=== PATIENT | female | born 1995 | race American Indian/Alaskan Native ===

== ENCOUNTER 2018-05-19 13:49 | Emergency (ER) | payer SELFPAY ==
--- NOTE | 2018-05-19 14:53 | Emergency Department Report ---
Blank Doc - Documentation Documentation: 23 Y. FEMALE PRESENT with left vaginal lip swelling after intercourse with part ner denies bleeding, vag d/c/dysuria LMP 05/16/18 PLAN: UA,UPT fast track eval
[2018-05-19 15:29] LABS: Bacteria,Urine 2+ /HPF (Negative); Bilirubin,Urine NEG (Negative); Blood,Urine MOD (Negative); Color,Urine Amber (Yellow); Hyaline Casts,Urine 2 /LPF; Mucus,Urine 3+ /HPF
[2018-05-19 15:55] LABS: HCG Qualitative,Urine Negative (Negative)
[2018-05-19 18:26] VITALS: BP 110/82
[2018-05-19] MEDS ORDERED: ROCEPHIN IM ONE (19:52)
[2018-05-19] MEDS ORDERED: ZITHROMAX PO ONE (19:52)
[2018-05-19] MEDS ORDERED: XYLOCAINE 1% MPF 5 mL INFILTRATI ONE (19:52)
--- NOTE | 2018-05-19 20:27 | Emergency Department Report ---
ED Female HPI - General Chief complaint: Urogenital-Female Stated complaint: VAGINAL PAIN Time Seen by Provider: 05/19/18 15:35 Source: patient Mode of arrival: Ambulatory Limitations: No Limitations - History of Present Illness Initial comments: Patient 23-year-old female who presents with vaginal pain and irritation times 1 week status and discharge white thick malodorous dysuria dyspareunia no nausea vomiting no fever chills no back pain abdominal pain patient believes possible STI there are no relieving or exacerbating factors Complaint: dysuria, pelvic pain, possible STD Onset/Timin -: week(s) Location: labia Radiation: suprapubic Severity: moderate Severity scale (0 -10): 4 Quality: burning, aching Consistency: constant Improves with: none Worsens with: none Are you Now?: No Last Menstrual Period: 05/05/18 EDC: 02/09/19 Associated Symptoms: vaginal discharge - Related Data Sexually active: Yes : 0 Para: 0 A: 0 Previous Rx's Medication Instructions Recorded Last Taken Type Naproxen [Naprosyn TAB] 500 mg PO BID #30 tablet 04/24/14 Unknown Rx Sulfamethoxazole/Trimethoprim 1 each PO Q12HR #6 tablet 08/12/14 Unknown Rx [Bactrim DS TAB] Doxycycline [Vibramycin CAP] 100 mg PO BID #20 capsule 05/19/18 Unknown Rx metroNIDAZOLE [Flagyl] 500 mg PO BID 10 Days #20 tab 05/19/18 Unknown Rx Allergies Allergy/AdvReac Type Severity Reaction Status Date / Time No Known Allergies Allergy Verified 05/19/18 14:48 ED Review of Systems ROS: Stated complaint: VAGINAL PAIN Other details as noted in HPI Constitutional: denies: chills, fever Eyes: denies: eye pain, eye discharge, vision change ENT: denies: ear pain, throat pain Respiratory: denies: cough, shortness of breath, wheezing Cardiovascular: denies: chest pain, palpitations Endocrine: no symptoms reported Gastrointestinal: denies: abdominal pain, nausea, diarrhea Genitourinary: urgency, dysuria, frequency, discharge, dyspareunia Musculoskeletal: denies: back pain, joint swelling, arthralgia Skin: denies: rash, lesions Neurological: denies: headache, weakness, paresthesias Psychiatric: denies: anxiety, depression Hematological/Lymphatic: denies: easy bleeding, easy bruising ED Past Medical Hx - Past Medical History Previous Medical History?: Yes Hx Hypertension: No Hx Diabetes: No Hx Deep Vein Thrombosis: No Hx Renal Disease: No Hx Sickle Cell Disease: No Hx Seizures: No Hx Psychiatric Treatment: Yes (POSSIBLE BIPOLAR) Hx Asthma: No Hx HIV: No Additional medical history: skin disorder - Surgical History Past Surgical History?: No - Social History Smoking Status: Current Every Day Smoker Substance Use Type: Alcohol, Marijuana - Medications Home Medications: Home Medications Medication Instructions Recorded Confirmed Last Taken Type Naproxen [Naprosyn TAB] 500 mg PO BID #30 tablet 04/24/14 Unknown Rx Sulfamethoxazole/Trimethoprim 1 each PO Q12HR #6 tablet 08/12/14 Unknown Rx [Bactrim DS TAB] Doxycycline [Vibramycin CAP] 100 mg PO BID #20 capsule 05/19/18 Unknown Rx metroNIDAZOLE [Flagyl] 500 mg PO BID 10 Days #20 tab 05/19/18 Unknown Rx ED Physical Exam - General Limitations: No Limitations General appearance: alert, in no apparent distress - Head Head exam: Present: atraumatic, normocephalic - Eye Eye exam: Present: normal appearance - ENT ENT exam: Present: mucous membranes moist - Neck Neck exam: Present: normal inspection, full ROM. Absent: lymphadenopathy, thyromegaly - Respiratory Respiratory exam: Present: normal lung sounds bilaterally. Absent: respiratory distress, wheezes, stridor, chest wall tenderness - Cardiovascular Cardiovascular Exam: Present: regular rate, normal rhythm, normal heart sounds. Absent: systolic murmur, diastolic murmur, rubs, gallop - GI/Abdominal GI/Abdominal exam: Present: soft, normal bowel sounds. Absent: distended, tenderness, guarding, rebound, rigid, bruit, hernia - Rectal Rectal exam: Present: deferred - External exam: Present: normal external exam, erythema. Absent: swelling, lesions, lacerations, ecchymosis, bleeding Speculum exam: Present: erythema, vaginal discharge (white thick malodorous ). Absent: cervical discharge, vaginal bleeding, foreign body, tissue, laceration Bi-manual exam: Present: cervical motion tendernes - Extremities Exam Extremities exam: Present: normal inspection, normal capillary refill. Absent: full ROM, tenderness, pedal edema, joint swelling, calf tenderness - Back Exam Back exam: Present: normal inspection, full ROM. Absent: tenderness, CVA tenderness (R), CVA tenderness (L), muscle spasm - Neurological Exam Neurological exam: Present: alert, oriented X3, CN II-XII intact, normal gait, reflexes normal - Psychiatric Psychiatric exam: Present: normal affect, normal mood - Skin Skin exam: Present: warm, dry, intact, normal color. Absent: rash ED Course Vital Signs 05/19/18 05/19/18 14:48 18:14 Temperature 98.2 F 98.2 F Pulse Rate 114 H 125 H Respiratory 16 15 Rate Blood Pressure 131/81 110/82 O2 Sat by Pulse 98 99 Oximetry ED Medical Decision Making - Lab Data Labs 05/19/18 05/19/18 15:03 15:03 Urine Color Anh Urine Turbidity Slightly-cloudy Urine pH 5.0 Ur Specific [place] 1.030 Urine Protein 30 mg/dl Urine Glucose (UA) Neg Urine Ketones Tr Urine Blood Mod Urine Nitrite Neg Urine Bilirubin Neg Urine Urobilinogen 4.0 Ur Leukocyte Esterase Neg Urine WBC (Auto) 5.0 Urine RBC (Auto) 4.0 U Epithel Cells (Auto) 17.0 H Urine Bacteria (Auto) 2+ Hyaline Casts 2 Urine Mucus 3+ Urine HCG, Qual Negative - Medical Decision Making this is a UTI with vaginitis, std exposure tx'd for same, will add doxycycline for CMT there is no fever no chills no n/v pt will follow [facility] for HIV and HSV screening. Critical care attestation.: If time is entered above; I have spent that time in minutes in the direct care of this critically ill patient, excluding procedure time. ED Disposition Clinical Impression: STD exposure UTI (urinary tract infection) Qualifiers: Urinary tract infection type: acute cystitis Hematuria presence: without hematuria Qualified Code(s): N30.00 - Acute cystitis without hematuria Vaginitis Qualifiers: Chronicity: acute Qualified Code(s): N76.0 - Acute vaginitis Disposition: TO HOME OR SELFCARE Is pt being admited?: No Does the pt Need Aspirin: No Condition: Stable Instructions: Vaginitis (ED), Urinary Tract Infection in Women (ED), Sexually Transmitted Diseases (ED) Additional Instructions: [facility] Prescriptions: Doxycycline [Vibramycin CAP] 100 mg PO BID #20 capsule metroNIDAZOLE [Flagyl] 500 mg PO BID 10 Days #20 tab Referrals: ELSIE VILLAFANA MD [Primary Care Provider] - 3-5 Days Forms: Work/School Release Form(ED) Time of Disposition: 20:31
== END 2018-05-19 20:31 | disposition home or self-care (01) ==
LOC: ED 13:49
DX: N39.0 Urinary tract infection, site not specified (principal); N76.0 Acute vaginitis; Z20.2 Contact with and (suspected) exposure to infections with a predominantly sexual mode of transmission; F17.200 Nicotine dependence, unspecified, uncomplicated
CPT/HCPCS: 81001; 81025; 87210; 87591; 96372; 99284; J0696

== ENCOUNTER 2018-09-09 13:25 | Emergency (ER) | payer OTHER ==
[2018-09-09 13:45] VITALS: BP 140/83
--- NOTE | 2018-09-09 13:51 | Emergency Department Report ---
Chief Complaint: Urogenital-Female Stated Complaint: VACCINE Time Seen by Provider: 09/09/18 13:43 - HPI History of Present Illness: This is a 23-year-old female nontoxic, well in appearance with no signs of distress presents to the ED for STD check. Patient stated that his partner called and said has STD. Patient stated she is asymptotic. Denies any vaginal discharge, testicular pain, or swelling. Patient denies any urinary symptoms. Patient denies any fever, chills, headache, nausea, vomiting, chest pain or shortness of breathe. Denies any other symptoms or complaints. Denies any allergies or PMH. - Exam Vital Signs: Vital Signs 09/09/18 13:43 Temperature 98.7 F Pulse Rate 115 H Respiratory 16 Rate Blood Pressure 140/83 O2 Sat by Pulse 99 Oximetry Physical Exam: Denies any abdominal pain. Deneis any pelvic pain. Denies any urinary symptoms. MSE screening note: Focused history and physical exam performed. Due to findings the following was ordered: ED Medical Decision Making - Medical Decision Making This is a 23-year-old female that presents with nonmedical emergency complaint. Patient is just requested for a STD test. Patient denies any symptoms. Patient was approached by registration for insurance or copay but patient refused. I gave patient many different referrals to follow-up with STD concerns. Patient was instructed to Follow-up with a primary care doctor in 3-5 days or if symptoms worsen and continue return to emergency room as soon as possible. At time of discharge, the patient does not seem toxic or ill in appearance. No acute signs of distress noted. Patient agrees to discharge treatment plan of care. No further questions noted by the patient. ED Disposition for MSE Clinical Impression: Possible exposure to STD Disposition: Z-07 MED SCREENING EXAM-LEFT Is pt being admited?: No Does the pt Need Aspirin: No Condition: Stable Instructions: Safe Sex (ED) Additional Instructions: Follow-up with a primary care doctor, [facility], or [facility] in 3-5 days or if symptoms worsen and continue return to the emergenc y department as soon as possible. Referrals: PRIMARY MD JIMBO [Referring] - 3-5 Days SHIRAZ PUGA MD [Staff Physician] - 3-5 Days [facility] [Outside] - 3-5 Days [facility] [Outside] - 3-5 Days
== END 2018-09-09 14:00 | disposition left against medical advice (07) ==
LOC: ED 13:25
DX: Z20.2 Contact with and (suspected) exposure to infections with a predominantly sexual mode of transmission (principal)
CPT/HCPCS: 99281

== ENCOUNTER 2019-07-28 15:32 | Emergency (ER) | payer SELFPAY ==
[2019-07-28 15:54] VITALS: BP 127/70
--- NOTE | 2019-07-28 16:00 | Emergency Department Report ---
Chief Complaint: Medical Clearance Stated Complaint: FEELING ILL Time Seen by Provider: 07/28/19 15:56 - HPI History of Present Illness: This is a 24-year-old female presents to ED stating that she is 2 weeks late of her menstrual cycle and thinks she is . Patient states that her partner states he had a vasectomy so she cannot be . Patient states that her periods are usually regular and comes every month. Patient states that she is here to get a test and see if she is . Patient states she took a home test that was positive. She denies vaginal bleeding, pelvic pain, abdominal pain, nausea vomiting or any other symptoms. - ROS Review of Systems: As noted in HPI - Exam Vital Signs: Vital Signs 07/28/19 15:50 Temperature 98.8 F Pulse Rate 86 Respiratory 18 Rate Blood Pressure 127/70 O2 Sat by Pulse 100 Oximetry Physical Exam: GENERAL: Alert and oriented x3, no apparent distress, Normal Gait, atraumatic. . SKIN: Warm and dry, No lesions, No ulceration or induration present. MSE screening note: Focused history and physical exam performed. Due to findings the following was ordered: ED Medical Decision Making - Medical Decision Making Discussed with patient on this is not a medical emergency. Referrals given to patient for the health department and other clinics where she can go get a test done. Vital signs are normal patient is in no acute distress. Patient understands instructions. ED Disposition for MSE Clinical Impression: Well adult health check Disposition: Z- MED SCREENING EXAM-LEFT Is pt being admited?: No Does the pt Need Aspirin: No Condition: Stable Instructions: (ED) Additional Instructions: Make sure to follow [facility] with [facility] or [facility] or the health department for test As discussed. If you have any worsening symptoms or develop new symptoms please return to ED immediately. Referrals: [facility] [Outside] - 3-5 Days [facility] [Outside] - 3-5 Days [facility] [Outside] - 3-5 Days [facility] [Outside] - 3-5 Days Forms: Work/School Release Form(ED) Time of Disposition: 15:58
== END 2019-07-28 17:13 | disposition left against medical advice (07) ==
LOC: ED 15:32
DX: Z00.00 Encounter for general adult medical examination without abnormal findings (principal)
CPT/HCPCS: 99281

== ENCOUNTER 2019-10-22 16:00 | Emergency (ER) | payer SELFPAY ==
[2019-10-22 19:15] VITALS: BP 137/57
--- NOTE | 2019-10-22 19:21 | Emergency Department Report ---
ED ENT HPI - General Chief complaint: Earache Stated complaint: RT EAR DRUM/PAIN Time Seen by Provider: 10/22/19 19:13 Source: patient Mode of arrival: Ambulatory Limitations: No Limitations - History of Present Illness Initial comments: Patient is a 24-year-old female presents emergency room with complaints of right-sided ear pain that began several days ago. She states a few days ago she used a Q-tip and was scratching inside the ear. She states that she has had ringing in the ear since then. She denies any drainage. She states that her bilateral canals always bother her. She denies any fever, vomiting, chills, abdominal pain, vaginal bleeding. She denies any past medical history. She denies allergies to medications. She states that she is currently 4 months . - Related Data Previous Rx's Medication Instructions Recorded Last Taken Type Naproxen [Naprosyn TAB] 500 mg PO BID #30 tablet 04/24/14 Unknown Rx Sulfamethoxazole/Trimethoprim 1 each PO Q12HR #6 tablet 08/12/14 Unknown Rx [Bactrim DS TAB] DOXYCYCLINE Hyclate [Vibramycin 100 mg PO BID #20 capsule 05/19/18 Unknown Rx CAP] metroNIDAZOLE [Flagyl] 500 mg PO BID 10 Days #20 tab 05/19/18 Unknown Rx Amoxicillin [Amoxicillin TAB] 875 mg PO BID 10 Days #20 tablet 04/12/19 Unknown Rx Amoxicillin/Potassium Clav 1 each PO BID 10 Days #20 tablet 10/22/19 Unknown Rx [Augmentin 875-125 Tablet] Neomycin/Polymyxin B/Hydrocort 4 drops AU QID 10 Days #1 solution 10/22/19 Unknown Rx [Uzwbcbyz-Maxhvsuzt-Dd Ear Soln] Allergies Allergy/AdvReac Type Severity Reaction Status Date / Time No Known Allergies Allergy Verified 05/19/18 14:48 ED Dental HPI - General Chief complaint: Earache Stated complaint: RT EAR DRUM/PAIN Time Seen by Provider: 10/22/19 19:13 Source: patient Mode of arrival: Ambulatory Limitations: No Limitations - Related Data Previous Rx's Medication Instructions Recorded Last Taken Type Naproxen [Naprosyn TAB] 500 mg PO BID #30 tablet 04/24/14 Unknown Rx Sulfamethoxazole/Trimethoprim 1 each PO Q12HR #6 tablet 08/12/14 Unknown Rx [Bactrim DS TAB] DOXYCYCLINE Hyclate [Vibramycin 100 mg PO BID #20 capsule 05/19/18 Unknown Rx CAP] metroNIDAZOLE [Flagyl] 500 mg PO BID 10 Days #20 tab 05/19/18 Unknown Rx Amoxicillin [Amoxicillin TAB] 875 mg PO BID 10 Days #20 tablet 04/12/19 Unknown Rx Amoxicillin/Potassium Clav 1 each PO BID 10 Days #20 tablet 10/22/19 Unknown Rx [Augmentin 875-125 Tablet] Neomycin/Polymyxin B/Hydrocort 4 drops AU QID 10 Days #1 solution 10/22/19 Unknown Rx [Zogawkkw-Iqsdtnwff-Pm Ear Soln] Allergies Allergy/AdvReac Type Severity Reaction Status Date / Time No Known Allergies Allergy Verified 05/19/18 14:48 ED Review of Systems ROS: Stated complaint: RT EAR DRUM/PAIN Other details as noted in HPI Comment: All other systems reviewed and negative ED Past Medical Hx - Past Medical History Previous Medical History?: No Hx Hypertension: No Hx Diabetes: No Hx Deep Vein Thrombosis: No Hx Renal Disease: No Hx Sickle Cell Disease: No Hx Seizures: No Hx Psychiatric Treatment: Yes (POSSIBLE BIPOLAR) Hx Asthma: No Hx HIV: No Additional medical history: skin disorder - Surgical History Past Surgical History?: No - Social History Smoking Status: Current Every Day Smoker Substance Use Type: None - Medications Home Medications: Home Medications Medication Instructions Recorded Confirmed Last Taken Type Naproxen [Naprosyn TAB] 500 mg PO BID #30 tablet 04/24/14 Unknown Rx Sulfamethoxazole/Trimethoprim 1 each PO Q12HR #6 tablet 08/12/14 Unknown Rx [Bactrim DS TAB] DOXYCYCLINE Hyclate [Vibramycin 100 mg PO BID #20 capsule 05/19/18 Unknown Rx CAP] metroNIDAZOLE [Flagyl] 500 mg PO BID 10 Days #20 tab 05/19/18 Unknown Rx Amoxicillin [Amoxicillin TAB] 875 mg PO BID 10 Days #20 tablet 04/12/19 Unknown Rx Amoxicillin/Potassium Clav 1 each PO BID 10 Days #20 tablet 10/22/19 Unknown Rx [Augmentin 875-125 Tablet] Neomycin/Polymyxin B/Hydrocort 4 drops AU QID 10 Days #1 solution 10/22/19 Unknown Rx [Brwzrxgl-Jkkjxeact-Yb Ear Soln] ED Physical Exam - General Limitations: No Limitations General appearance: alert, in no apparent distress - Head Head exam: Present: atraumatic, normocephalic - Eye Eye exam: Present: normal appearance - ENT ENT exam: Present: normal orophraynx, mucous membranes moist, other (left tm is erythematous and scaling with purulent drainage present in the canal, left TM is normal, right canal is erythematous with scaling and purulent drainage in the canal, the right TM has purulence present behind the TM, unable to visualize an obvious TM perforation) - Neurological Exam Neurological exam: Present: alert, oriented X3 - Psychiatric Psychiatric exam: Present: normal affect, normal mood - Skin Skin exam: Present: warm, dry, intact ED Course Vital Signs 10/22/19 10/22/19 16:21 19:14 Temperature 98.3 F 98 F Pulse Rate 95 H 95 H Respiratory 16 18 Rate Blood Pressure 134/47 137/57 [Right] O2 Sat by Pulse 100 100 Oximetry ED Medical Decision Making - Medical Decision Making Patient is a 24-year-old female presents emergency room with complaints of right-sided ear pain that began several days ago. She states a few days ago she used a Q-tip and was scratching inside the ear. She states that she has had ringing in the ear since then. She denies any drainage. She states that her bilateral canals always bother her. She denies any fever, vomiting, chills, abdominal pain, vaginal bleeding. She denies any past medical history. She denies allergies to medications. She states that she is currently 4 months . Vitals are stable. On exam:left tm is erythematous and scaling with purulent drainage present in the canal, left TM is normal, right canal is erythematous with scaling and purulent drainage in the canal, the right TM has purulence present behind the TM, unable to visualize an obvious TM perforation. Examination consistent with right-sided otitis media and bilateral otitis externa. Patient given prescription for Augmentin and antibiotic eardrops. Advised patient Please use medication as prescribed. May take Tylenol as needed for discomfort. Please stop using Q-tips. Follow-up with a primary care doct or. Follow-up with a ear nose and throat doctor. Your ears need to be rechecked. Return to emergency room for any new or worsening symptoms. - Differential Diagnosis otitis media, otitis externa, cerumen impaction, perforation Critical care attestation.: If time is entered above; I have spent that time in minutes in the direct care of this critically ill patient, excluding procedure time. ED Disposition Clinical Impression: Otitis media Qualifiers: Otitis media type: suppurative Chronicity: acute Laterality: right Recurrence: not specified as recurrent Spontaneous tympanic membrane rupture: without spontaneous rupture Qualified Code(s): H66.001 - Acute suppurative otitis media without spontaneous rupture of ear drum, right ear Otitis externa Qualifiers: Otitis externa type: unspecified type Chronicity: acute Laterality: bilateral Qualified Code(s): H60.503 - Unspecified acute noninfective otitis externa, bilateral Disposition: DC- TO HOME OR SELFCARE Is pt being admited?: No Does the pt Need Aspirin: No Condition: Stable Instructions: Otitis Externa (ED), Otitis Media (ED) Additional Instructions: Please use medication as prescribed. May take Tylenol as needed for discomfort. Please stop using Q-tips. Follow-up with a primary care doctor. Follow-up with a ear nose and throat doctor. Your ears need to be rechecked. Return to emergency room for any new or worsening symptoms. Prescriptions: Amoxicillin/Potassium Clav [Augmentin 875-125 Tablet] 1 each PO BID 10 Days #20 tablet Neomycin/Polymyxin B/Hydrocort [Butochfo-Pukhceqqc-Gx Ear Soln] 4 drops AU QID 10 Days #1 solution Referrals: YFN MÉNDEZ MD [Staff Physician] - 2-3 Days [facility] [Provider Group] - 2-3 Days [facility] [Outside] - 2-3 Days MARVIN CRISOSTOMO MD [Staff Physician] - 2-3 Days Time of Disposition: 19:18 Print Language: LUXEMBOURGISH
== END 2019-10-22 19:28 | disposition home or self-care (01) ==
LOC: ED 16:00
DX: O26.892 Other specified pregnancy related conditions, second trimester (principal); H66.001 Acute suppurative otitis media without spontaneous rupture of ear drum, right ear; H60.503 Unspecified acute noninfective otitis externa, bilateral; O99.332 Smoking (tobacco) complicating pregnancy, second trimester; O99.342 Other mental disorders complicating pregnancy, second trimester; Z3A.16 16 weeks gestation of pregnancy
CPT/HCPCS: 99282

== ENCOUNTER 2020-02-09 16:28 | Outpatient (CLI) | payer MEDICAID ==
[2020-02-09] MEDS ORDERED: LACTATED RINGERS 1,000 ML IV SCH (17:00)
[2020-02-09 17:01] VITALS: BP 127/69
[2020-02-09 17:47] LABS: Bacteria,Urine 3+ /HPF (Negative); Bilirubin,Urine NEG (Negative); Blood,Urine NEG (Negative); Color,Urine Yellow (Yellow); Mucus,Urine 3+ /HPF; Protein,Urine <15 mg/dL mg/dL (Negative); RBC,Urine < 1.0 /HPF (0.0-6.0)
[2020-02-09 17:54] LABS: Amphetamine Screen,Urine PRESUMPTIVE NEGATIVE; Benzodiazepines Screen,Urine PRESUMPTIVE NEGATIVE; Cannabinoid Screen,Urine PRESUMPTIVE NEGATIVE; Cocaine Screen,Urine PRESUMPTIVE NEGATIVE; Methadone Screen,Urine PRESUMPTIVE NEGATIVE; Opiate Screen,Urine PRESUMPTIVE NEGATIVE
== END 2020-02-09 19:00 | disposition home or self-care (01) ==
LOC: APU 16:28 → TRG 16:28
PROVIDERS: ATTEND Obstetrics & Gynecology
DX: O46.8X3 Other antepartum hemorrhage, third trimester (principal); Z3A.34 34 weeks gestation of pregnancy
CPT/HCPCS: 59025; 80307; 81001

== ENCOUNTER 2020-03-17 00:11 | Outpatient (CLI) | payer MEDICAID ==
[2020-03-17 01:13] VITALS: BP 124/74
[2020-03-17 02:11] LABS: Bilirubin,Urine NEG (Negative); Blood,Urine NEG (Negative); Color,Urine Yellow (Yellow); Mucus,Urine FEW /HPF; Protein,Urine <15 mg/dL mg/dL (Negative); Urobilinogen,Urine < 2.0 mg/dL (<2.0)
[2020-03-17 02:19] LABS: Amphetamine Screen,Urine PRESUMPTIVE NEGATIVE; Benzodiazepines Screen,Urine PRESUMPTIVE NEGATIVE; Cannabinoid Screen,Urine PRESUMPTIVE NEGATIVE; Cocaine Screen,Urine PRESUMPTIVE NEGATIVE; Methadone Screen,Urine PRESUMPTIVE NEGATIVE; Opiate Screen,Urine PRESUMPTIVE NEGATIVE
== END 2020-03-17 02:50 | disposition home or self-care (01) ==
LOC: TRG 00:11 → APU 00:31 → TRG 02:50
PROVIDERS: ATTEND Obstetrics & Gynecology
DX: Z34.03 Encounter for supervision of normal first pregnancy, third trimester (principal); Z3A.40 40 weeks gestation of pregnancy
CPT/HCPCS: 59025; 80307; 81001

== ENCOUNTER 2020-03-22 20:09 | Inpatient (IN) | payer MEDICAID ==
[2020-03-22] MEDS ORDERED: MINERAL OIL 30 ML ORAL LIQD PO PRN (21:44)
[2020-03-22] MEDS ORDERED: fentaNYL 100 MCG/2 ML INJ IV PRN (21:44)
[2020-03-22] MEDS ORDERED: OXYTOCIN 10 UNIT/1 ML INJ IM PRN (21:44)
[2020-03-22] MEDS ORDERED: miSOPROStol 200 MCG TAB PR PRN (21:44)
[2020-03-22] MEDS ORDERED: CARBOPROST TROMETHAMINE 250 MCG/1 ML INJ IM PRN (21:44)
[2020-03-22] MEDS ORDERED: TERBUTALINE 1 MG/1 ML INJ SUB-Q PRN (21:44)
[2020-03-22] MEDS ORDERED: LIDOCAINE (2%) 20 MG/1 ML VIAL 20 ML MDV INFILTRATI ONE (21:44)
[2020-03-22] MEDS ORDERED: ONDANSETRON 4 MG/2 ML INJ IV PRN (21:44)
[2020-03-22] MEDS ORDERED: ePHEDrine SULFATE 50 MG/1 ML INJ IV PRN (21:44)
[2020-03-22] MEDS ORDERED: AMPICILLIN/NS 2 GM/100 ML 2 GM/100 ML BAG IV ONE (21:44)
[2020-03-22] MEDS ORDERED: METHYLERGONOVINE MALEATE 0.2 MG/ML VIAL IM PRN (21:44)
[2020-03-22] MEDS ORDERED: LACTATED RINGERS 1,000 ML IV SCH (21:45)
[2020-03-22] MEDS ORDERED: OXYTOCIN DRIP 30 UNITS/500 ML BAG IV SCH ×2 (22:00)
--- NOTE | 2020-03-22 22:00 | History and Physical Report ---
History of Present Illness Date of examination: 03/22/20 (No PN Care ; here tonight with SROM meconium) Chief complaint: labor History of present illness: Family is not aware of first labor. 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 Smoker Denies drug and ETOH while . Denies med/surg hx Past History - Obstetrical History Expected Date of Delivery: 03/17/20 Actual Gestation: 40 Week(s) 6 Day(s) : 2 Para: 1 Hx # Term Pregnancies: 1 Number of Pregnancies: 0 Spontaneous Abortions: 0 Induced : 0 Number of Living Children: 1 (baby was taken from her) Medications and Allergies Allergies Allergy/AdvReac Type Severity Reaction Status Date / Time No Known Allergies Allergy Verified 05/19/18 14:48 Home Medications Medication Instructions Recorded Confirmed Last Taken Type Naproxen [Naprosyn TAB] 500 mg PO BID #30 tablet 04/24/14 Unknown Rx Sulfamethoxazole/Trimethoprim 1 each PO Q12HR #6 tablet 08/12/14 Unknown Rx [Bactrim DS TAB] DOXYCYCLINE Hyclate [Vibramycin 100 mg PO BID #20 capsule 05/19/18 Unknown Rx CAP] metroNIDAZOLE [Flagyl] 500 mg PO BID 10 Days #20 tab 05/19/18 Unknown Rx Amoxicillin [Amoxicillin TAB] 875 mg PO BID 10 Days #20 tablet 04/12/19 Unknown Rx Amoxicillin/Potassium Clav 1 each PO BID 10 Days #20 tablet 10/22/19 Unknown Rx [Augmentin 875-125 Tablet] Neomycin/Polymyxin B/Hydrocort 4 drops AU QID 10 Days #1 solution 10/22/19 Un known Rx [Vzsttwao-Oyadxkuru-Ks Ear Soln] - Vital Signs Vital signs: Vital Signs Pulse BP Pulse Ox 68 141/88 98 03/22/20 21:02 03/22/20 21:02 03/22/20 21:02 Temp Pulse Resp BP Pulse Ox 97.9 F 65 18 141/88 95 03/22/20 21:08 03/22/20 21:47 03/22/20 21:08 03/22/20 21:08 03/22/20 21:47 - Physical Exam Breasts: Positive: deferred Cardiovascular: Regular rate, Normal S1, Normal S2 Lungs: Positive: Normal air movement Abdomen: Positive: normal appearance, soft, normal bowel sounds. Negative: distention, tenderness Genitourinary (Female): Positive: normal external genitalia Vulva: both: normal Vagina: Positive: normal moisture. Negative: discharge Cervix: Negative: lesion, discharge Uterus: Positive: normal size, normal contour Adnexa: both: normal Anus/Rectum: Positive: normal perianal skin, heme negative. Negative: rectal mass, hemorrhoids Extremities: Positive: normal Deep Tendon Reflex Grade: Normal +2 - Obstetrical FHR: category 1 Uterine Contraction Monitor Mode: Internal Cervical Dilatation: 8 Cervical Effacement Percentage: 80 station: -1 Uterine Contraction Pattern: Regular Uterine Tone Measurement Phase: Resting Uterine Contraction Intensity: Moderate Results Result Diagrams: 03/22/20 22:20 All other labs normal. Assessment and Plan No PN Care Anticipate delivery All labs drawn Ampicillin for unknown GBS
[2020-03-22 23:15] LABS: Basophils % (Auto) 0.2 % (0.0-1.8); Eosinophils % (Auto) 0.1 % (0.0-4.3); Hematocrit 34.1 % (30.3-42.9); Hemoglobin 11.8 gm/dl (10.1-14.3); Lymphocytes # (Auto) 1.7 K/mm3 (1.2-5.4); Mean Corpuscular HGB Conc 35 % (30-34); Mean Corpuscular Volume 97 fl (79-97); Monocytes # (Auto) 0.8 K/mm3 (0.0-0.8); Monocytes % (Auto) 10.2 % (0.0-7.3); Platelet Count 297 K/mm3 (140-440); Red Blood Count 3.52 M/mm3 (3.65-5.03); Red Cell Distribution Width 14.1 % (13.2-15.2)
[2020-03-22 23:23] LABS: Hepatitis C Virus Antibody Non-Reactive (NonReactive)
[2020-03-23] MEDS ORDERED: NALOXONE 2 MG/2 ML INJ IV PRN (00:24)
[2020-03-23] MEDS ORDERED: ePHEDrine SULFATE 50 MG/1 ML INJ IV PRN (00:24)
[2020-03-23] MEDS ORDERED: NalbUPHINE 10 MG/1 ML INJ IV PRN (00:24)
[2020-03-23] MEDS ORDERED: diphenhydrAMINE 50 MG/ML VIAL IV PRN (00:24)
--- NOTE | 2020-03-23 00:25 | Anesthesia Consultation ---
Anesthesia Consult and Med Hx Date of service: 03/23/20 - Airway Anesthetic Teeth Evaluation: Good ROM Head & Neck: Adequate Mental/Hyoid Distance: Adequate Mallampati Class: Class II Intubation Access Assessment: Probably Good - Pulmonary Exam CTA: Yes - Cardiac Exam Cardiac Exam: RRR - Pre-Operative Health Status ASA Pre-Surgery Classification: ASA2 Proposed Anesthetic Plan: Epidural - Pulmonary Hx Smoking: Yes Hx Asthma: No COPD: No Hx Pneumonia: No Hx Sleep Apnea: No - Cardiovascular System Hx Hypertension: No Hx Heart Attack/AMI: No Hx Angina: No - Central Nervous System Hx Seizures: No Hx Psychiatric Problems: No - Gastrointestinal Hx Gastroesophageal Reflux Disease: No - Endocrine Hx Renal Disease: No Hx End Stage Renal Disease: No Hx Insulin Dependent Diabetes: No Hx Non-Insulin Dependent Diabetes: No Hx Hypothyroidism: No Hx Hyperthyroidism: No - Hematic Hx Anemia: No Hx Sickle Cell Disease: No - Other Systems Hx Alcohol Use: No Hx Substance Use: No - Additional Comments Anesthesia Medical History Comments: HIV+
--- NOTE | 2020-03-23 00:28 | Progress Note ---
Labor Epidural - Labor Epidural Start Time: 00:05 Stop Time: 00:20 Performed by:: ELLIOTT CONTEH Procedure: Patient is requesting a laboring epidural for laboring pain. Patient IDed, H&P reviewed, all questions and concerns were answered, and consent was signed. Timeout was performed at bedside. Patient in sitting position. Sterile prep and drape was performed. 3ml of 1% lidocaine skin wheal at L[3]- L [4]. 18- gauge Touhy epidural needle was advanced to loss of resistance with air technique. Negative CSF negative blood. Epidural catheter advanced to [12] centimeters. [-] Aspiration [-] test dose. Sterile dressing applied. Patient tolerated procedure.
[2020-03-23] MEDS ORDERED: fentaNYL-BUPIV 2 MCG/ML-0.125% 200 MCG/100 ML BAG EPIDURAL SCH (01:00)
[2020-03-23 01:24] LABS: Bilirubin,Urine NEG (Negative); Blood,Urine NEG (Negative); Color,Urine Yellow (Yellow); Mucus,Urine FEW /HPF; Protein,Urine <15 mg/dL mg/dL (Negative); Urobilinogen,Urine < 2.0 mg/dL (<2.0)
[2020-03-23 01:34] LABS: Amphetamine Screen,Urine PRESUMPTIVE NEGATIVE; Benzodiazepines Screen,Urine PRESUMPTIVE NEGATIVE; Cannabinoid Screen,Urine PRESUMPTIVE NEGATIVE; Cocaine Screen,Urine PRESUMPTIVE NEGATIVE; Methadone Screen,Urine PRESUMPTIVE NEGATIVE; Opiate Screen,Urine PRESUMPTIVE NEGATIVE
[2020-03-23] MEDS ORDERED: AMPICILLIN/NS 1 GM/50 ML 1 GM/50 ML BAG IV SCH (01:45)
[2020-03-23] MEDS ORDERED: LIDOCAINE (2%) 20 MG/1 ML VIAL 20 ML MDV INFILTRATI ONE (01:51)
--- NOTE | 2020-03-23 02:13 | Procedure Note ---
OB Delivery Note - Delivery Date of Delivery: 03/23/20 Surgeon: GLEN FRAGA Estimated blood loss: 300cc - Vaginal Delivery presentation: vertex Delivery position: OA Intrapartum events: no care, meconium (THICK), extend. bradycardia Delivery induction: oxytocin Delivery augmentation: rupture of membranes Delivery monitor: external FHT, external uterine, internal FHT, internal uterine Delivery cord: nuchal cord (TIMES ONE CLAMPED X 2 AND REDUCED) Episiotomy: none Delivery laceration: 2nd degree (LEFT LABIAL) Delivery repair: vicryl (3-0) Delivery comments: Pt progressed to c/c/100 and 3+ station and did not want to push. Pt was encouraged to push due to heart rate being in the 80-90s. Pt continue to state "yall are rushing me. I need to take my time." Myself and nursing staff stressed the importance of not delaying delivery as the baby was in distress. I did discuss c/s delivery as pt refused to push and pt did not given verbal agreement for c/s. Pt did eventually push with the above stated findings. It should also be noted that upon admission pt did not reveal an HIV (+) status and as per nursing staff did not admit to it until confronted with testing in the hospital. She admitted to treatment with one set of provider and no treatment with another set of providers. She did not get antiviral during labor as this was not noted until she was 9cm dilated and 100 %effaced and she had been laboring several hours with AROM. NICU was present at the delivery and was aware of newly discovered HIV positive status. Pt delivered over an intact perineum. Ant shoulder delivered and nuchal cord was clamped and cut and reduced as described above. Cord blood was collected. Cord gas was not collected due to not having the proper collection system at the bedside. Placenta delivered spontaneously intact. 2nd degree right labial laceration noted to be bleeding and was repaired under local anesthesia with 3-0 vicrly with a single muzmon-or-yhfym stitch. Pt tolerated the procedure well. - A at 1 minute: 2 at 5 minutes: 9 Gender: Male (7lbs 1oz)
[2020-03-23] MEDS ORDERED: PROMETHAZINE 25 MG TAB PO PRN (02:14)
[2020-03-23] MEDS ORDERED: diphenhydrAMINE 25 MG CAP PO PRN (02:14)
[2020-03-23] MEDS ORDERED: WITCH HAZEL/ GLYCERIN PAD TP PRN (02:14)
[2020-03-23] MEDS ORDERED: MAGNESIUM HYDROXIDE (MOM) ORAL LIQD UDC PO PRN (02:14)
[2020-03-23] MEDS ORDERED: LANOLIN/ZINC/DIMETHICONE (LANSINOH) 7 GM TP PRN (02:14)
[2020-03-23] MEDS ORDERED: ACETAMINOPHEN 500 MG TAB PO PRN (02:29)
[2020-03-23] MEDS: IBUPROFEN 800 MG TAB PO SCH ×4 (04:15→18:31)
--- NOTE | 2020-03-23 07:54 | Progress Note ---
Assessment and Plan Pt laying in bed quietly holding . No visible s/s of distress. Reports ABD cramping and RN to bring pain medication. VSSAF. Post-delivery H/H schedule to be collected at 1414. Ambulating and voiding without difficulty. Fundus firm at umbilicus. Moderate vaginal bleeding seen. Formula feeding without difficulty. P: Continue PP pathway. Awaiting confirmation from [facility] for HIV+ screening on admission. Case management consult ordered for recovering addict and no PNC. - Patient Problems (1) (normal spontaneous vaginal delivery) Current Visit: No Status: Acute Subjective - Subjective Date of service: 03/23/20 Principal diagnosis: < 12 hr s/p at 40 weeks Patient reports: appetite normal, voiding normally, pain well controlled, ambulating normally [place]: doing well Objective - Vital Signs Latest vital signs: Vital Signs Temp Pulse Resp BP BP Pulse Ox 03/23/20 07:41 18 03/23/20 03:42 82 100 03/23/20 03:37 72 118/59 100 03/23/20 03:32 74 100 03/23/20 03:27 70 100 03/23/20 03:22 80 128/83 99 03/23/20 03:17 75 100 03/23/20 03:12 86 99 03/23/20 03:07 93 H 99 03/23/20 03:02 69 100 03/23/20 02:57 71 99 03/23/20 02:52 76 129/72 99 03/23/20 02:47 78 99 03/23/20 02:42 100 H 98 03/23/20 02:37 85 141/75 100 03/23/20 02:32 75 99 03/23/20 02:27 75 100 03/23/20 02:22 89 146/84 100 03/23/20 02:17 94 H 100 03/23/20 02:12 86 99 03/23/20 02:07 103 H 100 03/23/20 02:06 88 114/57 03/23/20 02:02 97 H 120/58 100 03/23/20 01:57 83 100 03/23/20 01:56 93 H 120/56 03/23/20 01:52 94 H 100 03/23/20 01:51 91 H 120/56 03/23/20 01:48 109 H 153/90 03/23/20 01:47 115 H 100 03/23/20 01:42 105 H 100 03/23/20 01:41 97 H 139/87 03/23/20 01:37 129 H 129/83 100 03/23/20 01:32 80 131/81 100 03/23/20 01:27 84 100 03/23/20 01:22 94 H 100 03/23/20 01:21 86 118/69 03/23/20 01:17 82 114/71 100 03/23/20 01:12 72 100 03/23/20 01:11 68 107/56 03/23/20 01:07 81 100 03/23/20 01:06 76 112/58 03/23/20 01:02 81 114/58 100 03/23/20 00:57 74 122/70 100 03/23/20 00:52 85 100 03/23/20 00:51 72 126/69 03/23/20 00:47 68 100 03/23/20 00:45 70 128/67 03/23/20 00:43 76 132/61 03/23/20 00:42 86 100 03/23/20 00:39 87 127/73 03/23/20 00:37 81 118/68 100 03/23/20 00:35 74 129/75 03/23/20 00:34 75 133/81 03/23/20 00:33 75 131/79 03/23/20 00:32 95 H 100 03/23/20 00:31 98 H 137/85 03/23/20 00:29 83 134/89 03/23/20 00:27 92 H 147/91 100 03/23/20 00:25 77 146/85 03/23/20 00:23 88 137/81 03/23/20 00:22 90 100 03/23/20 00:21 88 163/111 03/23/20 00:17 95 H 99 03/23/20 00:12 78 99 03/23/20 00:07 95 H 161/83 97 03/23/20 00:02 86 100 03/22/20 23:57 36 L 88 03/22/20 23:36 76 150/93 03/22/20 22:32 96 H 96 03/22/20 22:27 69 99 03/22/20 22:22 67 99 03/22/20 22:17 72 98 03/22/20 22:12 72 99 03/22/20 22:07 78 99 03/22/20 22:02 74 99 03/22/20 21:57 77 99 03/22/20 21:54 80 88 03/22/20 21:52 62 98 03/22/20 21:47 65 95 03/22/20 21:45 92 03/22/20 21:42 74 98 03/22/20 21:37 73 98 03/22/20 21:32 71 100 03/22/20 21:27 75 97 03/22/20 21:22 75 98 03/22/20 21:17 72 97 03/22/20 21:12 76 98 03/22/20 21:08 97.9 F 72 18 141/88 97 03/22/20 21:07 90 97 03/22/20 21:04 94 03/22/20 21:02 90 141/88 98 Intake and Output 03/22/20 03/23/20 03/23/20 22:59 06:59 14:59 Other: Weight 170 lb Estimated Blood Loss 300 - Exam Breasts: Present: deferred Cardiovascular: Present: Regular rate Lungs: Present: Normal air movement Abdomen: Present: normal appearance, soft Uterus: Present: normal, firm, fundal height at umbilicus Extremities: Present: normal Deep Tendon Reflex Grade: Normal +2 - Labs Labs: Abnormal lab results 03/22/20 Range/Units 22:20 RBC 3.52 L (3.65-5.03) M/mm3 MCH 34 H (28-32) pg MCHC 35 H (30-34) % [place] % (Auto) 10.2 H (0.0-7.3) %
--- NOTE | 2020-03-23 10:17 | Post Anesthesia Evaluation ---
- Post Anesthesia Evaluation Patient Participated: Yes Airway Patent: Yes Stable Respiratory Function: Yes Nausea/Vomiting: No Temp > 96.8F: Yes Pain Manageable: Yes Adequeate Hydration: Yes Anesthesia Complications: No Block Receding Appropriately: Yes Patient on Ventilator: No
[2020-03-23 15:35] LABS: Hematocrit 29.5 % (30.3-42.9); Hemoglobin 10.1 gm/dl (10.1-14.3)
[2020-03-24] MEDS: IBUPROFEN 800 MG TAB PO SCH ×2 (04:51→12:04)
[2020-03-24] MEDS ORDERED: DIPHtheria,PERTUSSIS(ACELL),TETANUS VACCINE/PF 0.5 ML VIAL IM ONE (06:00)
--- NOTE | 2020-03-24 07:56 | Discharge Summary ---
Providers - Providers Date of Admission: 03/22/20 21:44 Date of discharge: 03/24/20 (desires d/c home) Attending physician: GLEN FRAGA 03/23/20 Consult to Case Management [CONS] Routine Services Needed at Discharge: G[employer] Helper Notified:: No Additional Physician Instructions: no care, HIV positive no treatment, previous taken out of custody at time of delivery Primary care physician: GREEN TIRE INSPECTOR Hospitalization Reason for admission: Labor Condition: Good Pertinent studies: post delivery H&H .05/12.5 Procedures: Hospital course: and course complicated by no care Disposition: DC-01 TO HOME OR SELFCARE - Discharge Diagnoses (1) (normal spontaneous vaginal delivery) Status: Acute Core Measure Documentation - Palliative Care Palliative Care/ Comfort Measures: Not Applicable - Core Measures Any of the following diagnoses?: none Exam - Constitutional Vitals: Temp Pulse Resp BP Pulse Ox 98 F 75 20 124/75 98 03/24/20 01:54 03/24/20 01:54 03/24/20 04:51 03/24/20 01:54 03/24/20 01:54 General appearance: Present: no acute distress, well-nourished - EENT Eyes: Present: PERRL ENT: hearing intact, clear oral mucosa - Neck Neck: Present: supple, normal ROM - Respiratory Respiratory effort: normal Respiratory: bilateral: CTA - Cardiovascular Rhythm: regular Heart Sounds: Absent: rub, click - Extremities Extremities: No edema Peripheral Pulses: within normal limits - Abdominal General gastrointestinal: Present: soft, non-tender, non-distended, normal bowel sounds Female genitourinary: Present: normal - Integumentary Integumentary: Present: clear, warm, dry - Musculoskeletal Musculoskeletal: gait normal, strength equal bilaterally - Psychiatric Psychiatric: appropriate mood/affect, intact judgment & insight - Neurologic Neurologic: CNII-XII intact, moves all extremities - Additional findings Additional findings: lochia scant, fundus firm, bottle feeding Plan Activity: no restrictions Diet: regular Follow up with: PRIMARY CARE, [Primary Care Provider] - 7 Days ADELE MOTA CNM [Advanced Practice Nurse] - 7 Days (Congratulations! Please call [phone] to schedule your son's circumcision in 1 week and your visit in 6 weeks. Bring EMLA cream to your son's visit and wait for futher instructions. Call for any questions or concerns. ) Prescriptions: Lidocain2.5%/Prilocai2.5% [Emla] 5 gm TP ONCE PRN #1 tube PRN Reason: Pain Ibuprofen [Motrin 800 MG tab] 800 mg PO Q8HR PRN #30 tablet PRN Reason: Pain
[2020-03-24] MEDS ORDERED: MEASLES, MUMPS & RUBELLA 12,500 UNIT/0.5 ML VACCINE SUB-Q ONE (11:54)
[2020-03-24 13:44] VITALS: BP 126/66
== END 2020-03-24 13:35 | disposition home or self-care (01) | DRG 775 ==
LOC: TRG 20:09 → APU 20:52 → LD 21:44 → TRG 21:44 → OB 03-23 06:45
PROVIDERS: ADMIT Obstetrics & Gynecology; ATTEND Obstetrics & Gynecology
PROC: 10E0XZZ Delivery of Products of Conception, External Approach (ICD-10-PCS; principal; 2020-03-23)
PROC: 10907ZC Drainage of Amniotic Fluid, Therapeutic from Products of Conception, Via Natural or Artificial Opening (ICD-10-PCS; 2020-03-23)
PROC: 0UQMXZZ Repair Vulva, External Approach (ICD-10-PCS; 2020-03-23)
PROC: 3E0R3BZ Introduction of Anesthetic Agent into Spinal Canal, Percutaneous Approach (ICD-10-PCS; 2020-03-23)
PROC: 00HU33Z Insertion of Infusion Device into Spinal Canal, Percutaneous Approach (ICD-10-PCS; 2020-03-23)
PROC: 3E0134Z Introduction of Serum, Toxoid and Vaccine into Subcutaneous Tissue, Percutaneous Approach (ICD-10-PCS; 2020-03-24)
DX: O77.0 Labor and delivery complicated by meconium in amniotic fluid (principal); Z37.0 Single live birth; Z3A.40 40 weeks gestation of pregnancy; Z11.4 Encounter for screening for human immunodeficiency virus [HIV]; Z20.828 Contact with and (suspected) exposure to other viral communicable diseases; O76 Abnormality in fetal heart rate and rhythm complicating labor and delivery; O69.81X0 Labor and delivery complicated by cord around neck, without compression, not applicable or unspecified; O70.0 First degree perineal laceration during delivery; Z21 Asymptomatic human immunodeficiency virus [HIV] infection status
CPT/HCPCS: 36415; 80307; 81001; 85014; 85018; 85025; 86592; 86689; 86706; 86762; 86803; 86850; 86900; 86901; 87806; 88307; 90707; G0378; J0290; J2405; J3010; J7120; U0003

== ENCOUNTER 2020-09-16 03:57 | Emergency (ER) | payer MEDICAID ==
--- NOTE | 2020-09-16 05:31 | Emergency Department Report ---
ED ENT HPI - General Chief complaint: Earache Stated complaint: EAR PAIN Time Seen by Provider: 09/16/20 04:51 Source: patient Mode of arrival: Ambulatory Limitations: No Limitations - History of Present Illness Initial comments: Patient is a 25-year-old female presents emergency room complaints of left ear pain since June. Patient states that she has had significant drainage from the left ear. She states that she has difficulty hearing from the left ear. 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 She states that she has noticed a significant amount of drainage on her pillow. She denies any fever, vomiting, diarrhea, chills. She states initially she had this last year and was given a prescription for antibiotic eardrops and antibiotic pills but states that she did not complete the course of antibiotics. She has not followed up with a nuclear reactor technician. No other past medical history. No allergies medications. Last menstrual cycle 09/02/2020. - Related Data Previous Rx's Medication Instructions Recorded Last Taken Type Naproxen [Naprosyn TAB] 500 mg PO BID #30 tablet 04/24/14 Unknown Rx Sulfamethoxazole/Trimethoprim 1 each PO Q12HR #6 tablet 08/12/14 Unknown Rx [Bactrim DS TAB] DOXYCYCLINE Hyclate [Vibramycin 100 mg PO BID #20 capsule 05/19/18 Unknown Rx CAP] metroNIDAZOLE [Flagyl] 500 mg PO BID 10 Days #20 tab 05/19/18 Unknown Rx Amoxicillin [Amoxicillin TAB] 875 mg PO BID 10 Days #20 tablet 04/12/19 Unknown Rx Amoxicillin/Potassium Clav 1 each PO BID 10 Days #20 tablet 10/22/19 Unknown Rx [Augmentin 875-125 Tablet] Neomycin/Polymyxin B/Hydrocort 4 drops AU QID 10 Days #1 solution 10/22/19 Unknown Rx [Tevkkdgs-Uuptsoacl-Ua Ear Soln] Ibuprofen [Motrin 800 MG tab] 800 mg PO Q8HR PRN #30 tablet 03/24/20 Unknown Rx Lidocain2.5%/Prilocai2.5% [Emla] 5 gm TP ONCE PRN #1 tube 03/24/20 Unknown Rx Ciprofloxacin HCl [Ciprofloxacin 500 mg PO BID 7 Days #28 tablet 09/16/20 Unknown Rx TAB] Ofloxacin 0.3% [Floxin 0.3% Otic] 10 drops DAILY 10 Days #1 bottle 09/16/20 Unknown Rx Allergies Allergy/AdvReac Type Severity Reaction Status Date / Time No Known Allergies Allergy Verified 05/19/18 14:48 ED Dental HPI - General Chief complaint: Earache Stated complaint: EAR PAIN Time Seen by Provider: 09/16/20 04:51 Source: patient Mode of arrival: Ambulatory Limitations: No Limitations - Related Data Previous Rx's Medication Instructions Recorded Last Taken Type Naproxen [Naprosyn TAB] 500 mg PO BID #30 tablet 04/24/14 Unknown Rx Sulfamethoxazole/Trimethoprim 1 each PO Q12HR #6 tablet 08/12/14 Unknown Rx [Bactrim DS TAB] DOXYCYCLINE Hyclate [Vibramycin 100 mg PO BID #20 capsule 05/19/18 Unknown Rx CAP] metroNIDAZOLE [Flagyl] 500 mg PO BID 10 Days #20 tab 05/19/18 Unknown Rx Amoxicillin [Amoxicillin TAB] 875 mg PO BID 10 Days #20 tablet 04/12/19 Unknown Rx Amoxicillin/Potassium Clav 1 each PO BID 10 Days #20 tablet 10/22/19 Unknown Rx [Augmentin 875-125 Tablet] Neomycin/Polymyxin B/Hydrocort 4 drops AU QID 10 Days #1 solution 10/22/19 Unknown Rx [Klfvyrph-Anszpnwtp-Ft Ear Soln] Ibuprofen [Motrin 800 MG tab] 800 mg PO Q8HR PRN #30 tablet 03/24/20 Unknown Rx Lidocain2.5%/Prilocai2.5% [Emla] 5 gm TP ONCE PRN #1 tube 03/24/20 Unknown Rx Ciprofloxacin HCl [Ciprofloxacin 500 mg PO BID 7 Days #28 tablet 09/16/20 Unknown Rx TAB] Ofloxacin 0.3% [Floxin 0.3% Otic] 10 drops DAILY 10 Days #1 bottle 09/16/20 Unknown Rx Allergies Allergy/AdvReac Type Severity Reaction Status Date / Time No Known Allergies Allergy Verified 05/19/18 14:48 ED Review of Systems ROS: Stated complaint: EAR PAIN Other details as noted in HPI Comment: All other systems reviewed and negative ED Past Medical Hx - Past Medical History Hx Hypertension: No Hx Heart Attack/AMI: No Hx Congestive Heart Failure: No Hx Diabetes: No Hx Deep Vein Thrombosis: No Hx Renal Disease: No Hx Sickle Cell Disease: No Hx Seizures: No Hx Psychiatric Treatment: Yes (POSSIBLE BIPOLAR) Hx Asthma: No Hx COPD: No Hx HIV: No Additional medical history: skin disorder - Surgical History Past Surgical History?: No - Social History Smoking Status: Current Every Day Smoker Substance Use Type: None - Medications Home Medications: Home Medications Medication Instructions Recorded Confirmed Last Taken Type Naproxen [Naprosyn TAB] 500 mg PO BID #30 tablet 04/24/14 Unknown Rx Sulfamethoxazole/Trimethoprim 1 each PO Q12HR #6 tablet 08/12/14 Unknown Rx [Bactrim DS TAB] DOXYCYCLINE Hyclate [Vibramycin 100 mg PO BID #20 capsule 05/19/18 Unknown Rx CAP] metroNIDAZOLE [Flagyl] 500 mg PO BID 10 Days #20 tab 05/19/18 Unknown Rx Amoxicillin [Amoxicillin TAB] 875 mg PO BID 10 Days #20 tablet 04/12/19 Unknown Rx Amoxicillin/Potassium Clav 1 each PO BID 10 Days #20 tablet 10/22/19 Unknown Rx [Augmentin 875-125 Tablet] Neomycin/Polymyxin B/Hydrocort 4 drops AU QID 10 Days #1 solution 10/22/19 Unknown Rx [Fejwlwwc-Uvfaodirl-Zy Ear Soln] Ibuprofen [Motrin 800 MG tab] 800 mg PO Q8HR PRN #30 tablet 03/24/20 Unknown Rx Lidocain2.5%/Prilocai2.5% [Emla] 5 gm TP ONCE PRN #1 tube 03/24/20 Unknown Rx Ciprofloxacin HCl [Ciprofloxacin 500 mg PO BID 7 Days #28 tablet 09/16/20 Unknown Rx TAB] Ofloxacin 0.3% [Floxin 0.3% Otic] 10 drops DAILY 10 Days #1 bottle 09/16/20 Unknown Rx ED Physical Exam - General Limitations: No Limitations General appearance: alert, in no apparent distress - Head Head exam: Present: atraumatic, normocephalic - Eye Eye exam: Present: normal appearance - ENT ENT exam: Present: mucous membranes moist, other (right TM and canal are normal, Left canal is erytematous with purulent/bloody drainage in the canal, unable to visualize Left TM, no mastoid ttp bilaterally) - Respiratory Respiratory exam: Absent: respiratory distress, accessory muscle use - Neurological Exam Neurological exam: Present: alert, oriented X3 - Psychiatric Psychiatric exam: Present: normal affect, normal mood - Skin Skin exam: Present: warm, dry, intact ED Course Vital Signs 09/16/20 04:00 Temperature 98.8 F Pulse Rate 92 H Respiratory 18 Rate Blood Pressure 124/88 O2 Sat by Pulse 97 Oximetry ED Medical Decision Making - Medical Decision Making Patient is a 25-year-old female presents emergency room complaints of left ear pain since June. Patient states that she has had significant drainage from the left ear. She states that she has difficulty hearing from the left ear. 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 She states that she has noticed a significant amount of drainage on her pillow. She denies any fever, vomiting, diarrhea, chills. She states initially she had this last year and was given a prescription for antibiotic eardrops and antibiotic pills but states that she did not complete the course of antibiotics. She has not followed up with a nuclear reactor technician. No other past medical history. No allergies medications. Last menstrual cycle 09/02/2020. Vitals are stable. On exam:right TM and canal are normal, Left canal is erytematous with purulent/bloody drainage in the canal, unable to visualize Left TM, no mastoid ttp bilaterally. Examination appears consistent with significant otitis externa. Patient given prescription for antibiotic eardrops and antibiotic pills. Patient will be referred to ENT specialist. Discussed the importance of follow-up. Advised patient Please use medication as prescribed. Please complete your course of antibiotics. Follow-up with the nuclear reactor technician. Follow-up with a primary care doctor. Return to emergency room for any new or worsening symptoms. Critical care attestation.: If time is entered above; I have spent that time in minutes in the direct care of this critically ill patient, excluding procedure time. ED Disposition Clinical Impression: Non compliance with medical treatment Otitis externa Qualifiers: Otitis externa type: unspecified type Chronicity: acute Laterality: left Qualified Code(s): H60.502 - Unspecified acute noninfective otitis externa, left ear Disposition: DC-01 TO HOME OR SELFCARE Is pt being admited?: No Does the pt Need Aspirin: No Condition: Stable Instructions: Otitis Externa, [id number] Additional Instructions: Please use medication as prescribed. Please complete your course of antibiotics. Follow-up with the nuclear reactor technician. Follow-up with a primary care doctor. Return to emergency room for any new or worsening symptoms. Prescriptions: Ciprofloxacin HCl [Ciprofloxacin TAB] 500 mg PO BID 7 Days #28 tablet Ofloxacin 0.3% [Floxin 0.3% Otic] 10 drops DAILY 10 Days #1 bottle [facility] [Primary Care Provider] - 2-3 Days MARVIN CRISOSTOMO MD [Staff Physician] - 2-3 Days ANDREWS PERALTA MD [Referring] - 2-3 Days Time of Disposition: 05:29 Print Language: KINYARWANDA
[2020-09-16 06:18] VITALS: BP 116/82
== END 2020-09-16 06:19 | disposition home or self-care (01) ==
LOC: ED 03:57
DX: H60.92 Unspecified otitis externa, left ear (principal); Z91.19 Patient's noncompliance with other medical treatment and regimen; F17.200 Nicotine dependence, unspecified, uncomplicated; Z79.1 Long term (current) use of non-steroidal anti-inflammatories (NSAID); Z79.2 Long term (current) use of antibiotics; Z79.899 Other long term (current) drug therapy
CPT/HCPCS: 99282

== ENCOUNTER 2021-04-16 11:44 | Emergency (ER) | payer MEDICAID ==
[2021-04-16 12:44] LABS: Basophils % (Auto) 0.9 % (0.0-1.8); Eosinophils % (Auto) 0.4 % (0.0-4.3); Hematocrit 36.9 % (30.3-42.9); Lymphocytes # (Auto) 1.1 K/mm3 (1.2-5.4); Lymphocytes % (Auto) 23.6 % (13.4-35.0); Mean Corpuscular HGB Conc 33 % (30-34); Mean Corpuscular Volume 99 fl (79-97); Monocytes # (Auto) 0.5 K/mm3 (0.0-0.8); Monocytes % (Auto) 9.9 % (0.0-7.3); Platelet Count 339 K/mm3 (140-440); Red Blood Count 3.75 M/mm3 (3.65-5.03); Red Cell Distribution Width 13.2 % (13.2-15.2)
[2021-04-16 12:50] VITALS: BP 118/63
--- NOTE | 2021-04-16 12:53 | Emergency Department Report ---
ED Female HPI - General Chief complaint: Vaginal Bleeding Stated complaint: Vaginal Bleeding Time Seen by Provider: 04/16/21 12:32 Source: patient - History of Present Illness Initial comments: 26-year-old -[place] female presents to the emergency room complaining of vaginal bleeding she has had for few days. Patient is denies any pain. She states that the bleeding started Friday night. She got a confirmation of in February from [facility]. States that her last menstrual period was sometime in November. Patient reports that she thinks her last menstrual period was sometime in January. She has no complications with prior . She is 1 para 1. She states she found out she was on March 23 with a urine . MD Complaint: vaginal bleeding Onset/Timin -: days(s) Severity scale (0 -10): 0 Are you Now?: Yes Associated Symptoms: vaginal bleeding. denies: abdominal pain, nausea/vomiting, fever/chills - Related Data Sexually active: Yes : 1 Previous Rx's Medication Instructions Recorded Last Taken Type Naproxen [Naprosyn TAB] 500 mg PO BID #30 tablet 04/24/14 Unknown Rx Sulfamethoxazole/Trimethoprim 1 each PO Q12HR #6 tablet 08/12/14 Unknown Rx [Bactrim DS TAB] DOXYCYCLINE Hyclate [Vibramycin 100 mg PO BID #20 capsule 05/19/18 Unknown Rx CAP] metroNIDAZOLE [Flagyl] 500 mg PO BID 10 Days #20 tab 05/19/18 Unknown Rx Amoxicillin [Amoxicillin TAB] 875 mg PO BID 10 Days #20 tablet 04/12/19 Unknown Rx Amoxicillin/Potassium Clav 1 each PO BID 10 Days #20 tablet 10/22/19 Unknown Rx [Augmentin 875-125 Tablet] Neomycin/Polymyxin B/Hydrocort 4 drops AU QID 10 Days #1 solution 10/22/19 Unknown Rx [Littfuuo-Qzbopxkwr-Ex Ear Soln] Ibuprofen [Motrin 800 MG tab] 800 mg PO Q8HR PRN #30 tablet 03/24/20 Unknown Rx Lidocain2.5%/Prilocai2.5% [Emla] 5 gm TP ONCE PRN #1 tube 03/24/20 Unknown Rx Ciprofloxacin HCl [Ciprofloxacin 500 mg PO BID 7 Days #28 tablet 09/16/20 Unknown Rx TAB] Ofloxacin 0.3% [Floxin 0.3% Otic] 10 drops DAILY 10 Days #1 bottle 09/16/20 Unknown Rx HYDROcodone/APAP 7.5-325 [[place] 1 each PO Q6HR PRN #12 tablet 04/16/21 Unknown Rx 7.5/325] miSOPROStoL [Misoprostol] 200 mcg PO Q6HR #4 tablet 04/16/21 Unknown Rx Allergies Allergy/AdvReac Type Severity Reaction Status Date / Time No Known Allergies Allergy Verified 05/19/18 14:48 ED Review of Systems ROS: Stated complaint: Vaginal Bleeding Other details as noted in HPI Comment: All other systems reviewed and negative ED Past Medical Hx - Past Medical History Hx Hypertension: No Hx Heart Attack/AMI: No Hx Congestive Heart Failure: No Hx Diabetes: No Hx Deep Vein Thrombosis: No Hx Renal Disease: No Hx Sickle Cell Disease: No Hx Seizures: No Hx Psychiatric Treatment: Yes (POSSIBLE BIPOLAR) Hx Asthma: No Hx COPD: No Hx HIV: No Additional medical history: skin disorder - Social History Smoking Status: Current Every Day Smoker Substance Use Type: None - Medications Home Medications: Home Medications Medication Instructions Recorded Confirmed Last Taken Type Naproxen [Naprosyn TAB] 500 mg PO BID #30 tablet 04/24/14 Unknown Rx Sulfamethoxazole/Trimethoprim 1 each PO Q12HR #6 tablet 08/12/14 Unknown Rx [Bactrim DS TAB] DOXYCYCLINE Hyclate [Vibramycin 100 mg PO BID #20 capsule 05/19/18 Unknown Rx CAP] metroNIDAZOLE [Flagyl] 500 mg PO BID 10 Days #20 tab 05/19/18 Unknown Rx Amoxicillin [Amoxicillin TAB] 875 mg PO BID 10 Days #20 tablet 04/12/19 Unknown Rx Amoxicillin/Potassium Clav 1 each PO BID 10 Days #20 tablet 10/22/19 Unknown Rx [Augmentin 875-125 Tablet] Neomycin/Polymyxin B/Hydrocort 4 drops AU QID 10 Days #1 solution 10/22/19 Unknown Rx [Vhhglszc-Twhavcyhu-On Ear Soln] Ibuprofen [Motrin 800 MG tab] 800 mg PO Q8HR PRN #30 tablet 03/24/20 Unknown Rx Lidocain2.5%/Prilocai2.5% [Emla] 5 gm TP ONCE PRN #1 tube 03/24/20 Unknown Rx Ciprofloxacin HCl [Ciprofloxacin 500 mg PO BID 7 Days #28 tablet 09/16/20 Unknown Rx TAB] Ofloxacin 0.3% [Floxin 0.3% Otic] 10 drops DAILY 10 Days #1 bottle 09/16/20 Unknown Rx HYDROcodone/APAP 7.5-325 [[place] 1 each PO Q6HR PRN #12 tablet 04/16/21 Unknown Rx 7.5/325] miSOPROStoL [Misoprostol] 200 mcg PO Q6HR #4 tablet 04/16/21 Unknown Rx ED Physical Exam - General General appearance: alert, in no apparent distress - Head Head exam: Present: atraumatic, normocephalic - Eye Eye exam: Present: normal appearance - ENT ENT exam: Present: mucous membranes moist - Neck Neck exam: Present: normal inspection, full ROM - Respiratory Respiratory exam: Present: normal lung sounds bilaterally. Absent: respiratory distress - Cardiovascular Cardiovascular Exam: Present: regular rate, normal rhythm. Absent: systolic murmur, diastolic murmur, rubs, gallop - GI/Abdominal GI/Abdominal exam: Present: soft, normal bowel sounds. Absent: tenderness, guarding - Extremities Exam Extremities exam: Present: normal inspection - Back Exam Back exam: Present: normal inspection - Neurological Exam Neurological exam: Present: alert, oriented X3, normal gait - Psychiatric Psychiatric exam: Present: normal affect, normal mood - Skin Skin exam: Present: warm, dry, intact, normal color. Absent: rash ED Course Vital Signs 04/16/21 11:49 Temperature 99.3 F Pulse Rate 81 Respiratory 18 Rate Blood Pressure 118/63 O2 Sat by Pulse 99 Oximetry ED Medical Decision Making - Lab Data Result diagrams: 04/16/21 12:26 04/16/21 12:26 Lab Results 04/16/21 04/16/21 04/16/21 Range/Units 12:26 12:26 12:26 WBC 4.6 (4.5-11.0) K/mm3 RBC 3.75 (3.65-5.03) M/mm3 Hgb 12.0 (10.1-14.3) gm/dl Hct 36.9 (30.3-42.9) % MCV 99 H (79-97) fl MCH 32 (28-32) pg MCHC 33 (30-34) % RDW 13.2 (13.2-15.2) % Plt Count 339 (140-440) K/mm3 Lymph % (Auto) 23.6 (13.4-35.0) % [place] % (Auto) 9.9 H (0.0-7.3) % Eos % (Auto) 0.4 (0.0-4.3) % Baso % (Auto) 0.9 (0.0-1.8) % Lymph # (Auto) 1.1 L (1.2-5.4) K/mm3 [place] # (Auto) 0.5 (0.0-0.8) K/mm3 Eos # (Auto) 0.0 (0.0-0.4) K/mm3 Baso # (Auto) 0.0 (0.0-0.1) K/mm3 Seg Neutrophils % 65.2 (40.0-70.0) % Seg Neutrophils # 3.0 (1.8-7.7) K/mm3 Sodium 133 L (137-145) mmol/L Potassium 3.9 (3.6-5.0) mmol/L Chloride 100.5 (98-107) mmol/L Carbon Dioxide 22 (22-30) mmol/L Anion Gap 14 mmol/L BUN 8 (7-17) mg/dL Creatinine 0.5 L (0.6-1.2) mg/dL Estimated GFR > 60 ml/min BUN/Creatinine Ratio 16 % Glucose 80 (65-100) mg/dL Calcium 9.1 (8.4-10.2) mg/dL Total Bilirubin 1.00 (0.1-1.2) mg/dL AST 15 (5-40) units/L ALT 13 (7-56) units/L Alkaline Phosphatase 77 (35-129) units/L Total Protein 9.3 H (6.3-8.2) g/dL Albumin 4.2 (3.9-5) g/dL Albumin/Globulin Ratio 0.8 % HCG, Quant 5876 H (0-4) mIU/mL Urine Color (Yellow) Urine Turbidity (Clear) Urine pH (5.0-7.0) Ur Specific [place] (1.003-1.030) Urine Protein (Negative) mg/dL Urine Glucose (UA) (Negative) mg/dL Urine Ketones (Negative) mg/dL Urine Blood (Negative) Urine Nitrite (Negative) Urine Bilirubin (Negative) Urine Urobilinogen (<2.0) mg/dL Ur Leukocyte Esterase (Negative) Urine WBC (Auto) (0.0-6.0) /HPF Urine RBC (Auto) (0.0-6.0) /HPF U Epithel Cells (Auto) (0-13.0) /HPF Urine Mucus /HPF 04/16/21 Range/Units 12:48 WBC (4.5-11.0) K/mm3 RBC (3.65-5.03) M/mm3 Hgb (10.1-14.3) gm/dl Hct (30.3-42.9) % MCV (79-97) fl MCH (28-32) pg MCHC (30-34) % RDW (13.2-15.2) % Plt Count (140-440) K/mm3 Lymph % (Auto) (13.4-35.0) % [place] % (Auto) (0.0-7.3) % Eos % (Auto) (0.0-4.3) % Baso % (Auto) (0.0-1.8) % Lymph # (Auto) (1.2-5.4) K/mm3 [place] # (Auto) (0.0-0.8) K/mm3 Eos # (Auto) (0.0-0.4) K/mm3 Baso # (Auto) (0.0-0.1) K/mm3 Seg Neutrophils % (40.0-70.0) % Seg Neutrophils # (1.8-7.7) K/mm3 Sodium (137-145) mmol/L Potassium (3.6-5.0) mmol/L Chloride (98-107) mmol/L Carbon Dioxide (22-30) mmol/L Anion Gap mmol/L BUN (7-17) mg/dL Creatinine (0.6-1.2) mg/dL Estimated GFR ml/min BUN/Creatinine Ratio % Glucose (65-100) mg/dL Calcium (8.4-10.2) mg/dL Total Bilirubin (0.1-1.2) mg/dL AST (5-40) units/L ALT (7-56) units/L Alkaline Phosphatase (35-129) units/L Total Protein (6.3-8.2) g/dL Albumin (3.9-5) g/dL Albumin/Globulin Ratio % HCG, Quant (0-4) mIU/mL Urine Color Yellow (Yellow) Urine Turbidity Clear (Clear) Urine pH 7.0 (5.0-7.0) Ur Specific [place] 1.019 (1.003-1.030) Urine Protein <15 mg/dl (Negative) mg/dL Urine Glucose (UA) Neg (Negative) mg/dL Urine Ketones Neg (Negative) mg/dL Urine Blood Lg (Negative) Urine Nitrite Neg (Negative) Urine Bilirubin Neg (Negative) Urine Urobilinogen < 2.0 (<2.0) mg/dL Ur Leukocyte Esterase Neg (Negative) Urine WBC (Auto) 3.0 (0.0-6.0) /HPF Urine RBC (Auto) 57.0 (0.0-6.0) /HPF U Epithel Cells (Auto) 1.0 (0-13.0) /HPF Urine Mucus Few /HPF - Radiology Data Radiology results: report reviewed [facility] [address] [place] [address] Cat Scan Report Signed Patient: ALYSSIA RODRIGUEZ JR MR# : [id number] : 06/28/1992 Acct:[id number] Age/Sex: 28 / M ADM Date: 04/16/21 Loc: ED Attending Dr: Ordering Physician: HILARIO TOM Date of Service: 04/16/21 Procedure(s): CT abdomen pelvis w con Accession Number(s): [id number] cc: HILARIO TOM CT ABDOMEN AND PELVIS WITH CONTRAST INDICATION / CLINICAL INFORMATION: LUQ pain and tenderness.. TECHNIQUE: Axial CT images were obtained through the abdomen and pelvis after 100 cc Omnipaque [address] scans at this location are performed using CT dose reduction for ALARA by means of automated exposure control. COMPARISON: CT abdomen and pelvis with contrast from 05/01/2019. FINDINGS: LOWER CHEST: No significant abnormality. LIVER: No significant abnormality. BILIARY: The gallbladder is unremarkable. No biliary ductal dilatation. PANCREAS: No significant abnormality. SPLEEN: No significant abnormality. ADRENALS: No significant abnormality. KIDNEYS / URETERS: No significant abnormality. GI TRACT: No significant abnormality of the stomach or small bowel. The majority of the colon is collapsed. Mild fat stranding is seen adjacent to the distal third of the descending colon without other significant abnormalities of the colon. The appendix is unremarkable. PERITONEUM: No free fluid. No free air. No fluid collection. LYMPH NODES: No significant adenopathy. VASCULATURE: No significant abnormality. URINARY BLADDER: No significant abnormality. REPRODUCTIVE ORGANS: No significant abnormality. ADDITIONAL FINDINGS: None. BONES: No significant abnormality. IMPRESSION: 1. No acute findings in the left upper quadrant to explain the patient's pain. 2. Questionable mild uncomplicated descending colitis involving the distal third of the descending colon. No other acute findings. Signer Name: Naren Meza MD Signed: 04/16/2021 3:39 PM Workstation Name: [id number] Transcribed By: ADELAIDA Dictated By: Naren Meza MD Electronically Authenticated By: Naren Meza MD Signed Date/Time: 04/16/211538 DD/ 31 TD/TT: - Medical Decision Making 26-year-old -[place] female presents to the emergency room complaining of vaginal bleeding she has had for few days. Patient is denies any pain. She states that the bleeding started Friday night. She got a confirmation of in February from [facility]. States that her last menstrual period was sometime in November. Patient reports that she thinks her last menstrual period was sometime in January. She has no complications with prior . She is 1 para 1. She states she found out she was on March 23 with a urine . Patient has demise. Spoke to Dr. Nieves INFRASTRUCTURE CONSULTANT she recommends Cytotec 200 mcg orally every 6 hours for four doses. She also recommends pain medication such as [place]. Bleeding precautions and to follow-up with INFRASTRUCTURE CONSULTANT. Critical care attestation.: If time is entered above; I have spent that time in minutes in the direct care of this critically ill patient, excluding procedure time. ED Disposition Clinical Impression: demise Disposition: HOME / SELF CARE / HOMELESS Is pt being admited?: No Does the pt Need Aspirin: No Condition: Stable Instructions: Demise Additional Instructions: Please take medication as prescribed. Is important you follow-up with an INFRASTRUCTURE CONSULTANT. Understand that you are going to have heavy bleeding and cramping. Is important you return back to the emergency room if you have uncontrollable bleeding you are going through more than three pads an hour dizziness chest pain shortness of breath. Prescriptions: miSOPROStoL [Misoprostol] 200 mcg PO Q6HR #4 tablet HYDROcodone/APAP 7.5-325 [[place] 7.5/325] 1 each PO Q6HR PRN #12 tablet PRN Reason: Pain Referrals: PRIMARY CARE, [Primary Care Provider] - 3-5 Days BOBBY MCCULLOUGH MD [Staff Physician] - 3-5 Days Forms: Work/School Release Form(ED) Time of Disposition: 17:08
[2021-04-16 13:04] LABS: Alanine Aminotransferase 13 units/L (7-56); Albumin 4.2 g/dL (3.9-5); Blood Urea Nitrogen 8 mg/dL (7-17); Calcium 9.1 mg/dL (8.4-10.2); Hemolysis Index 5
[2021-04-16 13:05] LABS: BUN/Creatinine Ratio 16
[2021-04-16 13:18] LABS: Bilirubin,Urine NEG (Negative); Blood,Urine LG (Negative); Color,Urine Yellow (Yellow); Mucus,Urine FEW /HPF; Protein,Urine <15 mg/dL mg/dL (Negative); Urobilinogen,Urine < 2.0 mg/dL (<2.0)
--- NOTE | 2021-04-16 16:22 | Ultrasound Report ---
OB Ultrasound HISTORY: vaginal bleeding. TECHNIQUE: Grayscale and color imaging performed. COMPARISON: No recent relevant exam available FINDINGS: Transabdominal and endovaginal imaging was performed. Uterus measures 7.3 x 10.4 x 7.9 cm. There is an intrauterine gestation with a crown-rump length of 1 .6 cm corresponding with an EGA of 8 weeks 0 days. No cardiac activity was identified. Cervical length was 3.4 cm. Both ovaries appear unremarkable. No significant pelvic free fluid identi fied. IMPRESSION: pole with absence of cardiac activity most suggestive of demise. Otherwise un remarkable exam. Signer Name: Gabriele Treviño MD Signed: 04/16/2021 4:18 PM Workstation Name: [id number]
== END 2021-04-16 17:25 | disposition home or self-care (01) ==
LOC: ED 11:44
DX: O36.4XX0 Maternal care for intrauterine death, not applicable or unspecified (principal); Z3A.00 Weeks of gestation of pregnancy not specified
CPT/HCPCS: 36415; 76801; 76817; 80053; 81001; 84702; 85025; 99284